=== PATIENT | female | born 1990 | race Two or more races ===

== ENCOUNTER 2016-12-29 20:30 | Emergency (ER) | payer SELFPAY ==
[~2016-12-29] VITALS: Ht 160 cm; Wt 81.6 kg
[2016-12-29] MEDS ORDERED: NALOXONE 0.4 MG/ML VIAL. ONE (20:36)
[2016-12-29 21:16] LABS: BASO % 1 % (0-3); EOS % 1 % (0-3); HEMATOCRIT 42.8 % (36.0-47.0); HEMOGLOBIN 15.1 g/dL (12.0-15.5); LYMPH # 2.1 x10^3/uL (1.0-4.8); LYMPH % 22 % (24-48); MEAN CORPUSCULAR HEMOGLOBIN 30 pg (25-35); MEAN CORPUSCULAR HGB CONC 35 g/dL (31-37); MEAN CORPUSCULAR VOLUME 84 fL (79-100); MONO % 4 % (0-9); NEUT % 73 % (31-73); PLATELET COUNT 264 x10^3/uL (140-400); RED BLOOD COUNT 5.08 x10^6/uL (3.50-5.40); RED CELL DISTRIBUTION WIDTH 14.7 % (11.5-14.5); WHITE BLOOD COUNT 9.4 x10^3/uL (4.0-11.0)
[2016-12-29 21:33] LABS: CALCIUM 8.2 mg/dL (8.5-10.1); CREATININE 0.6 mg/dL (0.6-1.0); GFR 122.8; POTASSIUM 3.6 mmol/L (3.5-5.1)
[2016-12-29 21:39] LABS: ALBUMIN 3.8 g/dL (3.4-5.0); DIRECT BILIRUBIN 0.1 mg/dL (0.0-0.2); TOTAL BILIRUBIN 0.2 mg/dL (0.2-1.0); TOTAL PROTEIN 7.2 g/dL (6.4-8.2)
[2016-12-29 21:42] LABS: ETHANOL 144 mg/dL (0-10)
[2016-12-29] MEDS ORDERED: MULTIVIT INFUSN,ADULT 4,VIT K 10 ML, FOLIC ACID 1 MG, THIAMINE 100 MG in IV DEXTROSE 5%... IV ONE (22:45)
--- NOTE | 2016-12-29 22:46 | RAD ---
PROCEDURE CT head without contrast. CT cervical spine without contrast. HISTORY Fall. TECHNIQUE CT of the head and cervical spine was performed without intravenous contrast. One or more of the following individualized dose reduction techniques were utilized for this examination: 1. Automated exposure control; 2. Adjustment of the mA and/or kV according to patient size; 3. Use of iterative reconstruction technique. FINDINGS There is no intracranial hemorrhage. Hunt-white differentiation is preserved. The ventricles are normal in size and position. The orbits, paranasal sinuses, temporal bones and calvarium are unremarkable. The alignment of the cervical spine is normal. No fractures are identified. There is asymmetric positioning in the scanner. The craniocervical junction is unremarkable. Intervertebral disc heights are maintained. There is no prevertebral soft tissue swelling. There is no clear central canal or neural foraminal stenosis. IMPRESSION - No acute intracranial findings. - No cervical fracture or malalignment. Electronically signed by: Hemanth León (December 29, 2016 22:45:06)
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
[2016-12-29 23:00] VITALS: BP 101/58
[2016-12-29] MEDS ORDERED: NALOXONE 0.4 MG/ML VIAL. IV ONE (23:00)
--- NOTE | 2016-12-30 06:48 | EKG ---
[facility] [address] [place] [address] Test Date: 2016-12-29 Test Time: 21:43:14 Pat Name: NARCISO CARD Department: Room: Gender: F Asset Administrator: : [id number] Requested By: ASHANTI ZAVALA Order Number: [id number] Reading MD: Joseph Mireles Measurements Intervals [place] Rate: 94 P: 42 MD: 144 QRS: 26 QRSD: 92 T: 1 QT: 274 QTc: 343 Interpretive Statements SINUS RHYTHM NON-SPECIFIC ST/T CHANGES Electronically Signed On 01-06-2017 8:52:49 CDT by Joseph Mireles
== END 2016-12-30 00:05 | disposition home or self-care (01) ==
LOC: ER 20:30
DX: F10.129 Alcohol abuse with intoxication, unspecified (principal)
CPT/HCPCS: 36415; 51701; 70450; 72125; 80048; 80076; 81025; 82947; 83735; 85027; 93005; 96365; 96375; 99285; G0480; G6038; J2310; 80196